=== PATIENT | male | born 1990 | race Caucasian/White ===

== ENCOUNTER 2025-06-12 12:43 | Emergency (ER) | payer MEDICARE, SELFPAY ==
[2025-06-12 12:46] VITALS: BP 141/96; BMI 34.7
[2025-06-12 12:50] VITALS: BP 141/96
[2025-06-12] MEDS: NSS 1000 IV (12:59)
[2025-06-12 13:12] LABS: Hematocrit 42.6 % (39.0-52.0); Hemoglobin 14.8 g/dL (13.0-18.0); Mean Corp Hgb Conc. 34.7 g/dL (33.0-37.0); Mean Corpuscular Volume 86.2 fL (80.0-94.0); Nucleated Red Blood Cells % 0 % (-); Platelet Count 266 10^3/uL (130-400); Red Cell Dist. Width 11.9 % (11.5-14.5)
--- NOTE | 2025-06-12 13:25 | ED.GENMED ---
History of Present Illness
General
Chief Complaint: Seizure
Source: patient
Time Seen by Provider: 06/12/25 12:49
History of Present Illness
History of Present Illness:
34-year-old male with past medical history of seizure disorder, followed by neurology at [place], status post vagus nerve implant in 2014, presenting to the ER for evaluation after he had a seizure lasting approximately 1 minute while at work
earlier this morning, patient had an aura which is typical for him prior to the seizure and was able to sit himself on the ground. He notes that his last seizure was approximately 5 years ago. He is due for a nerve stimulator battery change next
week and has an appointment with his neurologist then. Patient is without any other symptoms at this time, denies any fevers or infectious symptoms, currently no headaches, visual disturbances, focal weakness or any other concerns.
Past History
Past History
ED Past Medical History: Seizures
ED Past Surgical History: Brain and Other (Brain surgery for seizures)
Social History
Tobacco: Non-smoker
Alcohol: Occasional
Drug: None
Personal: Single
Living: with family
Employment: Employed
Family History
Family History: Other (Noncontributory)
Review of Systems
Review of Systems
All Other Systems: ROS reviewed and negative except as documented in HPI and ROS
Phy Exam
Physical Exam
Physical Exam:
GENERAL: Alert , in no apparent distress
HEAD: Normocephalic atraumatic
EYE: conjunctiva clear
NECK: Supple
ENT: o/p clr, mmm. no tongue laceration
CARDIAC: Regular rate and rhythm
LUNGS: Clear breath sounds bilaterally, no acute respiratory distress, no wheezes/rales/rhonchi
NEUROLOGICAL: Alert and oriented
SKIN: Warm and dry, skin intact.
MUSCULOSKELETAL: well perfused.
PSYCH: Normal and appropriate interaction.
Scores
Heart Failure Risk
Heart Failure Risk Score: Not Applicable
Heart Score for Chest Pain Patients
STEMI patient?: Not applicable
Withdrawal Assessment of Alcohol
Withdrawal Assessment Completed?: Not applicable
Course
Orders/Labs/Results
Orders:
Orders
06/12/25 12:54
0.9% Sodium Chloride 1000 ml [Nss] 1,000 ml IV BOLUS
06/12/25 12:57
Complete Blood Count/With Diff Urgent
Comprehensive Metabolic Panel Urgent
06/12/25 12:57
06/12/25 12:57
Vital Signs
Initial and Last Documented VS:
Initial Vital Signs
Temp Pulse Resp BP Pulse Ox
97.3 F 88 18 141/96 95
06/12/25 12:46 06/12/25 12:46 06/12/25 12:46 06/12/25 12:46 06/12/25 12:46
Last Documented Vital Signs
Temp Pulse Resp BP Pulse Ox
97.3 F 73 18 129/91 99
06/12/25 12:46 06/12/25 14:17 06/12/25 14:17 06/12/25 14:17 06/12/25 14:17
MDM/Problems Addressed
Differential Diagnosis Includes:
Seizure
Electrolyte Imbalance
ICH
Malignancy/mass
MDM/Problems Addressed:
34-year-old male presenting to the ER for evaluation of a breakthrough seizure earlier today, at time of arrival to the ER patient is back to his normal state of health. Patient reports good compliance with all of his antiepileptic medications.
Without any fevers or infectious symptoms. Will check labs and treat with IV fluids, monitor in the ER. Anticipate discharge home with continued outpatient follow-up this coming week with his neurology team at [place].
Chronic conditions affecting care: Neurological disorder
Acute Exacerbation and/or Progression of Chronic Illness: Neurological disorder
*Pulse Oximetry
SaO2: 95
Oxygen Mode of Delivery: Room air
Patient hypoxic: no
*Critical Care Note
Total Time (30-74mins, 75-104mins- exclusive of procedures): Not Applicable
Patient Management
Escalation/DeEscalation of care consider admission/obs:
Patient's labs reassuring. He remained seizure-free in the ER. Follow-up with his neurologist as scheduled next week
ED Attending Note
-
Portions of this chart may have been created with voice recognition software.� Occasional wrong word or��sound alike� substitutions may have occurred due to the inherent limitations of voice recognition software.
Discharge Plan
Departure
Patient Disposition: Home (Routine Discharge)
Date of Disposition: 06/12/25
Time of Disposition: 14:03
Patient with high blood pressure during this ER visit?: Yes
Discharge Problem:
Seizure
Instructions: Seizures, Adult (DC)
Prescriptions:
No Action
lacosamide [Vimpat] 200 MG tablet
2 tablets PO DAILY
Vimpat
350 mg PO QPM
oxycodone-acetaminophen 5 MG/325 MG tablet
1 tab PO Q4HPRN PRN (Reason: pain) Qty: 10 0RF
Referrals:
Tano Greene MD [Family Provider, Family Practice]
Stand Alone Forms: Return to Work
Interventions
Interventions:
*Risk Screen - Suicide Last Done: 06/12/25 13:15
*General Assessment Last Done: 06/12/25 13:12
*Neglect/Abuse Screening Last Done: 06/12/25 13:12
*ED- Fall Risk Assessment Last Done: 06/12/25 13:12
*ED COVID-19 Vaccine History Last Done: 06/12/25 13:12
*ED Influenza Vaccine History Last Done: 06/12/25 13:12
*Nursing Disposition Last Done: 06/12/25 14:17
ED- Cardiac Assessment Last Done: 06/12/25 12:54
ED- Neurological Assessment Last Done: 06/12/25 12:54
ED- Pulmonary Assessment Last Done: 06/12/25 12:55
Discharge Date and Time
Discharge Date/Time: 06/12/25 14:18
Print Language: [id number]
[2025-06-12 13:41] LABS: AST (SGOT) 30 U/L (17-59); Albumin 4.5 g/dl (3.5-5.0); Alkaline Phosphatase 60 U/L (38-126); Blood Urea Nitrogen 13 mg/dl (9-20); Calcium 9.4 mg/dl (8.4-10.2); Carbon Dioxide 23 mmol/L (22-30); Chloride 106 mmol/L (98-107); Estimated Creatinine Clearance > 125 ml/min; Glucose 91 mg/dl (70-99); Potassium 4.4 mmol/L (3.5-5.1); Sodium 138 mmol/L (135-145); Total Protein 7.3 g/dl (6.3-8.2); eGFR > 60.00
[2025-06-12 13:51] LABS: ALT (SGPT) 32 U/L (0-50)
[2025-06-12 14:17] VITALS: BP 129/91
== END 2025-06-12 14:18 | disposition home or self-care (01) ==
LOC: EMR 12:43
PROVIDERS: Physician Assistant Medical; EMERGENCY PHYSICIAN Student in an Organized Health Care Education/Training Program; FAMILY PHYSICIAN Family Medicine
DX: G40.909 Epilepsy, unspecified, not intractable, without status epilepticus (principal)
CPT/HCPCS: 99284; 96360; 80053; 85025